=== PATIENT | female | born 1930 | race Caucasian/White ===

== ENCOUNTER 2016-07-03 13:03 | Emergency (ER) | payer MEDICARE, OTHER ==
[2016-07-03] MEDS ORDERED: Sodium Chloride 0.9% 10 ML Syringe FLUSH PRN (13:10)
[2016-07-03] MEDS ORDERED: Sodium Chloride 0.9% 1,000 ML IV ONE ×3 (13:13→14:40)
--- NOTE | 2016-07-03 13:32 | EDM.PDOC ---
ED HPI SEIZURE COMPLAINT - General Chief Complaint: Syncope Stated Complaint: [facility] Time Seen by Provider: 07/03/16 13:07 Source of Information: Reports: Patient History Limitations: Reports: No limitations - History of Present Illness INITIAL COMMENTS - FREE TEXT/NARRATIVE: Patient presents via EMS for evaluation and treatment of dizziness and syncope. Patient was at [facility] she became very dizzy and lightheaded. She was able to lay down on her own. She did not fall and hit her head denies any head trauma. She states anytime that she attempted to stand up she felt extremely dizzy, lightheaded and was unable to walk. Patient is denying any pain. She reports that the dizziness and lightheadedness is better when she is laying down. She denies any chest pain, abdominal pain, diarrhea, nausea, vomiting or any bloody stools. Patient reports that she was recently diagnosed with atrial fibrillation. She was started on new medications recently. Patient also reports that this morning she forgot to take her a.m. medications. She states that she took her a.m. and her noon medications all at the same time today. - Related Data Allergies/ADRs: Allergies Allergy/AdvReac Type Severity Reaction Status Date / Time azithromycin [From Zithromax] Allergy Hives Verified 07/03/16 13:11 cefaclor [From Ceclor] Allergy Rash Verified 07/03/16 13:11 valacyclovir HCl Allergy Rash Verified 07/03/16 13:11 [From Valtrex] pregabalin [From Lyrica] AdvReac Hypertensio Verified 07/03/16 13:11 n Home Meds: Home Meds Hydrochlorothiazide 25 mg PO QAM 09/17/13 [History] Irbesartan [Avapro] 150 mg PO QAM 09/17/13 [History] Omeprazole 20 mg PO QPM 09/17/13 [History] amLODIPine Besylate [Amlodipine Besylate] 5 mg PO QAM 09/17/13 [History] Acetaminophen [Tylenol Extra Strength] 500 mg PO DAILY PRN 09/18/13 [History] B2/Vit A,C & E/Lut/Zeaxanth/Mn [Icaps] 2 tab PO 12 09/18/13 [History] Fish Oil/[place]-3 Fatty Acids [Fish Oil 1,000 MG] 1,000 mg PO DAILY 09/18/13 [ History] Flaxseed Oil [Flaxseed] 1 cap PO 12 09/18/13 [History] Multivitamin [Multi-Vitamin Daily] 1 tab PO DAILY 09/18/13 [History] Calcium Carbonate [Calcium] 1 tab PO DAILY 05/26/16 [History] DULoxetine [Cymbalta] 90 mg PO DAILY 05/26/16 [History] Diazepam [Valium] 0.25 mg PO BEDTIME 05/26/16 [History] Donepezil [Aricept] 10 mg PO BEDTIME 05/26/16 [History] Gabapentin [Neurontin] 300 mg PO BEDTIME 05/26/16 [History] Melatonin 1 mg PO BEDTIME PRN 05/26/16 [History] Methylcellulose [Citrucel] 1 tab PO TID 05/26/16 [History] Potassium Chloride [Klor-Con 10] 10 meq PO BID 05/26/16 [History] Aspirin 81 mg PO DAILY #100 tab.chew 05/29/16 [Rx] Metoprolol Succinate [Toprol XL] 50 mg PO BID #60 tab.er 05/29/16 [Rx] oxyCODONE 5 mg PO Q6H PRN #56 tablet 05/29/16 [Rx] Amiodarone [Cordarone] 100 mg PO DAILY 07/03/16 [History] Fluticasone Propionate [Flovent] 1 inh INH BID 07/03/16 [History] Past Medical History HEENT History: Reports: Impaired vision, Other (see below) Other HEENT History: Wears glasses Cardiovascular History: Reports: Hypertension Gastrointestinal History: Reports: GERD Other Gastrointestinal History: Incontinent of bowels Genitourinary History: Reports: Urinary incontinence, Other (see below) Other Genitourinary History: Wears incontinent pads [facility]: Reports: Musculoskeletal History: Reports: Back pain, chronic Neurological History: Reports: Migraines, Neuropathy, diabetic, Other (see below ) Other Neuro History: Migraines quit after menopause, short term memory loss diagnosisi Psychiatric History: Reports: Anxiety, Depression, Other (see below) Other Psychiatric History: Short term memory loss. - Infectious Disease History Infectious Disease History: Reports: Measles, Shingles - Past Surgical History Cardiovascular Surgical History: Reports: None GI Surgical History: Reports: None Musculoskeletal Surgical History: Reports: Other (see below) Other Musculoskeletal Surgeries/Procedures:: back fusions Social & Family History - Family History Family Medical History: Noncontributory - Tobacco Use Smoking Status *Q: Never Smoker Second Hand Smoke Exposure: No - Caffeine Use Caffeine Use: Reports: None - Alcohol Use Days Per Week of Alcohol Use: 0 - Recreational Drug Use Recreational Drug Use: No Drug Use in Last 12 Months: No ED ROS GENERAL - Review of Systems Review Of Systems: See Below Constitutional: Denies: fever, chills Cardiovascular: Reports: Lightheadedness. Denies: Chest pain GI/Abdominal: Denies: Abdominal pain, Hematochezia, Melena, Nausea, Vomiting : Reports: no symptoms Neurological: Reports: Dizziness, Syncope - Physical Exam Exam: See Below Exam Limited By: No limitations General Appearance: alert, WD/WN, no apparent distress Eye Exam: bilateral eye: PERRL Ears: normal external exam Nose: normal inspection Throat/Mouth: Normal inspection, Normal voice, No airway compromise Head Exam: atraumatic, normocephalic Neck: normal inspection, non-tender, full range of motion Respiratory/Chest: no respiratory distress, lungs clear, normal breath sounds Cardiovascular: normal peripheral pulses, no murmur, irregularly irregular EKG INTERPRETATION EKG Date: 07/03/16 Time: 13:40 Rhythm: NSR Rate (beats/min): 65 [place]: normal P-wave: present QRS: normal ST-T: normal QT: prolonged EKG Interpretation Comments: NSR at 65 bpm. First degree AV block. Prolonged QT interval. Reviewed by myself and Dr. Diehl. Course - Vital Signs Last Recorded V/S: Last Vital Signs Temp 36.9 C 07/03/16 13:08 Pulse 61 07/03/16 17:23 Resp 16 07/03/16 17:23 BP 131/64 07/03/16 17:23 Pulse Ox 96 07/03/16 17:23 Orthostatic Blood Pressure [ 118/63 Standing] Orthostatic Blood Pressure [ 124/74 Sitting] Orthostatic Blood Pressure [ 121/66 Supine] - Orders/Labs/Meds Labs: Laboratory Tests 07/03/16 07/03/16 07/03/16 Range/Units 13:05 13:05 13:05 WBC 4.98 (3.98-10.04) K/mm3 RBC 3.57 L (3.98-5.22) M/mm3 Hgb 11.3 (11.2-15.7) gm/L Hct 34.1 (34.1-44.9) % MCV 95.5 H (79.4-94.8) fl MCH 31.7 (25.6-32.2) pg MCHC 33.1 (32.2-35.5) g/dl RDW Std Deviation 44.0 (36.4-46.3) fL Plt Count 212 (182-369) K/mm3 MPV 8.2 L (9.4-12.3) fl Neut % (Auto) 70.5 (34.0-71.1) % Lymph % (Auto) 18.7 L (19.3-51.7) % Frio % (Auto) 8.8 (4.7-12.5) % Eos % (Auto) 1.6 (0.7-5.8) Baso % (Auto) 0.4 (0.1-1.2) % Neut # 3.51 (1.56-6.13) K/mm3 Lymph # 0.93 L (1.18-3.74) K/mm3 Frio # 0.44 H (0.24-0.36) K/mm3 Eos # 0.08 (0.04-0.36) K/mm3 Baso # 0.02 (0.01-0.08) K/mm3 PT 11.3 (8.0-13.0) SECONDS INR 1.03 Sodium 144 (136-145) mEq/L Potassium 3.9 (3.5-5.1) mEq/L Chloride 106 (98-107) mEq/L Carbon Dioxide 33 H (21-32) mEq/L Anion Gap 8.9 (5-15) BUN 17 (7-18) mg/dL Creatinine 1.0 (0.55-1.02) mg/dL Est Cr Clr Drug Dosing TNP Estimated GFR (MDRD) 53 (>60) mL/min BUN/Creatinine Ratio 17.0 (14-18) Glucose 129 H (83-115) mg/dL POC Glucose (83-110) mg/dL Calcium 8.3 L (8.5-10.1) mg/dL Total Bilirubin 0.7 (0.2-1.0) mg/dL AST 15 (15-37) U/L ALT 20 (14-59) U/L Alkaline Phosphatase 76 (46-116) U/L Troponin I < 0.017 (0.00-0.056) ng/mL B-Natriuretic Peptide (0-100) pg/mL Total Protein 5.7 L (6.4-8.2) g/dl Albumin 3.0 L (3.4-5.0) g/dl Globulin 2.7 gm/dL Albumin/Globulin Ratio 1.1 (1-2) Urine Color (Yellow) Urine Appearance (Clear) Urine pH (5.0-8.0) Ur Specific [place] (1.005-1.030) Urine Protein (Negative) Urine Glucose (UA) (Negative) Urine Ketones (Negative) Urine Occult Blood (Negative) Urine Nitrite (Negative) Urine Bilirubin (Negative) Urine Urobilinogen (0.2-1.0) Ur Leukocyte Esterase (Negative) Urine RBC (0-5) /hpf Urine WBC (0-5) /hpf Ur Epithelial Cells (0-5) /hpf Urine Bacteria (FEW) /hpf Urine Mucus (FEW) /hpf 07/03/16 07/03/16 07/03/16 Range/Units 13:05 13:07 15:40 WBC (3.98-10.04) K/mm3 RBC (3.98-5.22) M/mm3 Hgb (11.2-15.7) gm/L Hct (34.1-44.9) % MCV (79.4-94.8) fl MCH (25.6-32.2) pg MCHC (32.2-35.5) g/dl RDW Std Deviation (36.4-46.3) fL Plt Count (182-369) K/mm3 MPV (9.4-12.3) fl Neut % (Auto) (34.0-71.1) % Lymph % (Auto) (19.3-51.7) % Frio % (Auto) (4.7-12.5) % Eos % (Auto) (0.7-5.8) Baso % (Auto) (0.1-1.2) % Neut # (1.56-6.13) K/mm3 Lymph # (1.18-3.74) K/mm3 Frio # (0.24-0.36) K/mm3 Eos # (0.04-0.36) K/mm3 Baso # (0.01-0.08) K/mm3 PT (8.0-13.0) SECONDS INR Sodium (136-145) mEq/L Potassium (3.5-5.1) mEq/L Chloride (98-107) mEq/L Carbon Dioxide (21-32) mEq/L Anion Gap (5-15) BUN (7-18) mg/dL Creatinine (0.55-1.02) mg/dL Est Cr Clr Drug Dosing Estimated GFR (MDRD) (>60) mL/min BUN/Creatinine Ratio (14-18) Glucose (83-115) mg/dL POC Glucose 141 H (83-110) mg/dL Calcium (8.5-10.1) mg/dL Total Bilirubin (0.2-1.0) mg/dL AST (15-37) U/L ALT (14-59) U/L Alkaline Phosphatase (46-116) U/L Troponin I (0.00-0.056) ng/mL B-Natriuretic Peptide 109 H (0-100) pg/mL Total Protein (6.4-8.2) g/dl Albumin (3.4-5.0) g/dl Globulin gm/dL Albumin/Globulin Ratio (1-2) Urine Color Light yellow (Yellow) Urine Appearance Slt cloudy H (Clear) Urine pH 7.0 (5.0-8.0) Ur Specific [place] 1.020 (1.005-1.030) Urine Protein Negative (Negative) Urine Glucose (UA) Negative (Negative) Urine Ketones Negative (Negative) Urine Occult Blood Negative (Negative) Urine Nitrite Positive H (Negative) Urine Bilirubin Negative (Negative) Urine Urobilinogen 0.2 (0.2-1.0) Ur Leukocyte Esterase Trace H (Negative) Urine RBC 0-5 (0-5) /hpf Urine WBC 20-30 H (0-5) /hpf Ur Epithelial Cells 0-5 (0-5) /hpf Urine Bacteria Many H (FEW) /hpf Urine Mucus Few (FEW) /hpf Meds: Medications Discontinued Medications Generic Name Dose Route Start Last Admin Trade Name Freq PRN Reason Stop Dose Admin Sodium Chloride 1,000 mls @ 999 mls/hr 07/03/16 13:13 07/03/16 13:19 Normal Saline IV 07/03/16 14:13 999 mls/hr ONETIME ONE Administration Sodium Chloride 1,000 mls @ 999 mls/hr 07/03/16 13:52 07/03/16 14:44 Normal Saline IV 07/03/16 14:52 999 mls/hr ONETIME ONE Administration Sodium Chloride 1,000 mls @ 999 mls/hr 07/03/16 14:40 07/03/16 14:45 Normal Saline IV 07/03/16 15:40 Not Given ONETIME ONE Sodium Chloride 10 ml 07/03/16 13:10 07/03/16 13:20 Saline Flush FLUSH 10 ml ASDIRECTED PRN Administration Keep Vein Open - Radiology Interpretation Free Text/Narrative:: chest xray reviewed by myself and Dr. Diehl shows no acute changes. - Re-Assessments/Exams Free Text/Narrative Re-Assessment/Exam: 07/03/16 13:42 has arrived. Found that in addition to her normal am and noon medications she also took his medications. This includes coreg, imdur, lipitor and welco. 07/06/16 16:30 Labs have returned. WBC is 4.98, hgb is 11.3 and plts are 212 Sodium is 144, potassium is 3.9 and chloride ia 106. Anion gap is 8.9. Glucose is 129. Creatinine is 1.0 Pt is 11.3, INR is 1.03 BNP is slightly elevated at 109 trop is negative at <0.017 UA has + nitrites and trace leuks. Urine sent for culture. Patient is feeling improved after receiving the 2 liter NS boluses. She has been able to get up and stand without much difficulty. Discussed with Dr. Diehl. Symptoms likely caused by taking husbands medications. Will have her hold the metoprolol tonight and resume normal medications tomorrow. 07/05/16 14:52 Culture returned. Klebsiella pneumonia present. Susceptible to bactrim. Resistant to macrobid and ampicillin. Patient has allergies to cefaclor. Rx for bactrim DS 1 tab PO bid x 7 days for UTI. Departure - Departure Time of Disposition: 16:35 Disposition: Home, Self-Care 01 Condition: fair Clinical Impression: Hypotension due to medication Instructions: Syncope, [id number] Referrals: Alex Maguire MD [Primary Care Provider] - Forms: ED Department Discharge Additional Instructions: Hold metoprolol tonight. Resume normal medications tomorrow. Rest today. Take your time getting up. Drink plenty of fluids. Please return to the ER should your symptoms change or worsen. Follow-up with your PCP as needed.
[2016-07-03 17:24] VITALS: BP 131/64
--- NOTE | 2016-07-05 07:59 | CR ---
Chest: Portable view of the chest was obtained. Comparison: Previous chest x-ray of 05/26/16. Heart is enlarged. Tortuous thoracic aorta is seen. Minimal scar is noted within the right lung base. Lungs otherwise are clear. Scoliosis present within the spine. Previous lower lumbar spine surgery is noted. Impression: 1. Findings as described above. Nothing acute is identified on portable chest x-ray. Diagnostic code #2
== END 2016-07-03 17:15 | disposition home or self-care (01) ==
LOC: SUPCPDRO 13:03 → JD.ED 13:03
DX: I95.2 Hypotension due to drugs (principal); T50.905A Adverse effect of unspecified drugs, medicaments and biological substances, initial encounter; I10 Essential (primary) hypertension; K21.9 Gastro-esophageal reflux disease without esophagitis; E11.40 Type 2 diabetes mellitus with diabetic neuropathy, unspecified; F41.9 Anxiety disorder, unspecified; F32.9 Major depressive disorder, single episode, unspecified; Z79.899 Other long term (current) drug therapy; Z79.82 Long term (current) use of aspirin; Z88.1 Allergy status to other antibiotic agents; Z88.8 Allergy status to other drugs, medicaments and biological substances
CPT/HCPCS: 36415; 71010; 80053; 81001; 82962; 83880; 84484; 85025; 85610; 87086; 93005; 96360; 96361; 99285; J7040; J7050; 87088; 87186; 99283

== ENCOUNTER 2016-07-25 03:57 | Emergency (ER) | payer MEDICARE, OTHER ==
[2016-07-25] MEDS ORDERED: predniSONE 20 MG Tab PO STA (04:48)
--- NOTE | 2016-07-25 04:54 | EDM.PDOC ---
ED HPI Allergic Reaction - General Chief Complaint: Allergic Reaction Stated Complaint: [facility] Time Seen by Provider: 07/25/16 04:27 Source of Information: Reports: Patient, Family (), RN notes reviewed History Limitations: Reports: No limitations - History of Present Illness INITIAL COMMENTS - FREE TEXT/NARRATIVE: The patient states that she developed lower lip and chin swelling, along with generalized pruritic urticaria about 24 hours ago. She does not have swelling of her tongue or back of her throat, and she denies dyspnea and wheezing. No prior similar symptoms. The patient was started on triamterene/HCTZ Tuesday evening, 07/23/2016, with her second dose yesterday morning, 07/24/2016. The patient also takes oxycodone, but believes that the last dose that she took was after her symptoms began. The patient's gave the patient a Zyrtec at home prior to coming to the ED. - Related Data Allergies/ADRs: Allergies Allergy/AdvReac Type Severity Reaction Status Date / Time azithromycin [From Zithromax] Allergy Hives Verified 07/25/16 04:14 cefaclor [From Ceclor] Allergy Rash Verified 07/25/16 04:14 valacyclovir HCl Allergy Rash Verified 07/25/16 04:14 [From Valtrex] pregabalin [From Lyrica] AdvReac Hypertensio Verified 07/25/16 04:14 n Home Meds: Home Meds Irbesartan [Avapro] 150 mg PO QAM 09/17/13 [History] Omeprazole 20 mg PO QPM 09/17/13 [History] amLODIPine Besylate [Amlodipine Besylate] 5 mg PO QAM 09/17/13 [History] Acetaminophen [Tylenol Extra Strength] 500 mg PO DAILY PRN 09/18/13 [History] B2/Vit A,C & E/Lut/Zeaxanth/Mn [Icaps] 2 tab PO 12 09/18/13 [History] Fish Oil/[place]-3 Fatty Acids [Fish Oil 1,000 MG] 1,000 mg PO DAILY 09/18/13 [ History] Flaxseed Oil [Flaxseed] 1 cap PO 12 09/18/13 [History] Multivitamin [Multi-Vitamin Daily] 1 tab PO DAILY 09/18/13 [History] Calcium Carbonate [Calcium] 1 tab PO DAILY 05/26/16 [History] DULoxetine [Cymbalta] 90 mg PO DAILY 05/26/16 [History] Diazepam [Valium] 0.25 mg PO BEDTIME 05/26/16 [History] Donepezil [Aricept] 10 mg PO BEDTIME 05/26/16 [History] Gabapentin [Neurontin] 300 mg PO BEDTIME 05/26/16 [History] Melatonin 1 mg PO BEDTIME PRN 05/26/16 [History] Methylcellulose [Citrucel] 1 tab PO TID 05/26/16 [History] Aspirin 81 mg PO DAILY #100 tab.chew 05/29/16 [Rx] Metoprolol Succinate [Toprol XL] 50 mg PO BID #60 tab.er 05/29/16 [Rx] oxyCODONE 5 mg PO Q6H PRN #56 tablet 05/29/16 [Rx] Amiodarone [Cordarone] 100 mg PO DAILY 07/03/16 [History] Fluticasone Propionate [Flovent] 1 inh INH BID 07/03/16 [History] Prednisone [IJD: predniSONE] 1 tab PO WITHBREAKFAST #3 tab 07/25/16 [Rx] Triamterene/Hydrochlorothiazid [Triamterene-HCTZ 37.5-25 MG] 1 each PO DAILY 01/02 [History] Past Medical History HEENT History: Reports: Impaired vision Other HEENT History: Wears glasses Cardiovascular History: Reports: Afib (paroxysmal), Hypertension Gastrointestinal History: Reports: GERD Other Gastrointestinal History: Incontinent of bowels Genitourinary History: Reports: Urinary incontinence [employer] History: Reports: Musculoskeletal History: Reports: Back pain, chronic, Osteoarthritis (spine) Neurological History: Reports: Other (see below) (Dementia) Psychiatric History: Reports: Anxiety, Depression - Infectious Disease History Infectious Disease History: Reports: Measles, Shingles - Past Surgical History HEENT Surgical History: Reports: Cataract surgery, Tonsillectomy Female Surgical History: Reports: Hysterectomy Neurological Surgical History: Reports: Lumbar spine (5 - 6 fusions and "clean up" surgeries) Social & Family History - Family History Family Medical History: Noncontributory - Tobacco Use Smoking Status *Q: Never Smoker Second Hand Smoke Exposure: No - Caffeine Use Caffeine Use: Reports: None - Alcohol Use Alcohol Use History: No Days Per Week of Alcohol Use: 0 - Recreational Drug Use Recreational Drug Use: No - Living Situation & Occupation Living situation: Reports: , with spouse Occupation: retired ED ROS ALLERGIC REACTION - Review of Systems Review Of Systems: See Below Constitutional: Reports: no symptoms HEENT: Reports: No symptoms Respiratory: Reports: No Symptoms Cardiovascular: Reports: No symptoms Endocrine: Reports: no symptoms GI/Abdominal: Reports: No symptoms : Reports: no symptoms Musculoskeletal: Reports: no symptoms Skin: Reports: no symptoms Neurological: Reports: No Symptoms Psychiatric: Reports: No symptoms Hematologic/Lymphatic: Reports: no symptoms Immunologic: Reports: no symptoms ED EXAM GENERAL NO PERIP PULSE - Physical Exam Exam: See Below Exam Limited By: No limitations General Appearance: alert, WD/WN, no apparent distress Eye Exam: bilateral eye: EOMI, normal inspection Ears: normal external exam, hearing grossly normal Nose: normal inspection, no blood Throat/Mouth: Normal inspection, Normal lips, Normal teeth, Normal gums, Normal oropharynx (No tongue or uvular swelling), Normal voice, No airway compromise Head: atraumatic, normocephalic Neck: normal inspection, full range of motion. No: lymphadenopathy (L), lymphadenopathy (R) Respiratory/Chest: no respiratory distress, lungs clear, normal breath sounds, no accessory muscle use. No: crackles, rhonchi, wheezing Cardiovascular: normal peripheral pulses, regular rate, rhythm, no edema, no gallop, no JVD, no murmur, no rub GI/Abdominal: normal bowel sounds, soft, non tender, no organomegaly, no distention, no abnormal bruit, no mass (Female) Exam: Deferred Rectal (Female) Exam: Deferred Back Exam: normal inspection Extremities: normal inspection, normal range of motion, no pedal edema, normal capillary refill Neurological: alert, oriented, no motor/sensory deficits Psychiatric: normal affect Skin Exam: Warm, Dry, Intact, Normal color, Rash (Generalized urticaria) Lymphatic: no adenopathy Course - Vital Signs Last Recorded V/S: Last Vital Signs Temp 36.8 C 07/25/16 04:08 Pulse 60 07/25/16 04:08 Resp 13 07/25/16 04:08 BP 143/65 H 07/25/16 04:08 Pulse Ox 95 07/25/16 04:08 - Orders/Labs/Meds Meds: Medications Discontinued Medications Generic Name Dose Route Start Last Admin Trade Name Idania PRKarla Reason Stop Dose Admin Prednisone 40 mg 07/25/16 04:48 07/25/16 04:53 Prednisone PO 07/25/16 04:49 40 mg ONETIME STA Administration - Re-Assessments/Exams Free Text/Narrative Re-Assessment/Exam: 07/25/16 04:49 The patient appears to be having an allergic reaction, with generalized urticaria and pruritus. Etiology unknown. I have started the patient on prednisone 40 mg now, and will e-prescribe 20 mg daily, starting tomorrow, for 3 days. I will refer her to an Distribution Collection Operator. Departure - Departure Time of Disposition: 04:50 Disposition: Home, Self-Care 01 Condition: fair Clinical Impression: Allergic reaction Prescriptions: Prednisone [IJD: predniSONE] 1 tab PO WITHBREAKFAST #3 tab Referrals: Alex Maguire MD [Primary Care Provider] - Mynor Gao MD [Ordering Only Provider] - Forms: ED Department Discharge Additional Instructions: You were seen in the emergency room for itchy hives. The cause of your allergic reaction is unknown. It could be anything you ingested, including food or medicine. You have been started on the steroid prednisone. Take one tablet with breakfast starting tomorrow, 07/26/2016. Finish the entire prescription unless told otherwise by your doctor. If you develop difficulty breathing or swallowing, you need to return to the ER right away. Otherwise, followup with the Distribution Collection Operator Dr. Gao at the next available appointment.
[2016-07-25 05:17] VITALS: BP 143/60
== END 2016-07-25 05:13 | disposition home or self-care (01) ==
LOC: JD.ED 03:57
DX: T78.40XA Allergy, unspecified, initial encounter (principal); I10 Essential (primary) hypertension; K21.9 Gastro-esophageal reflux disease without esophagitis; F41.8 Other specified anxiety disorders; M19.90 Unspecified osteoarthritis, unspecified site; Z79.899 Other long term (current) drug therapy; Z79.82 Long term (current) use of aspirin; Z88.1 Allergy status to other antibiotic agents; Z88.8 Allergy status to other drugs, medicaments and biological substances
CPT/HCPCS: 99283; A9270

== ENCOUNTER 2016-07-26 06:08 | Emergency (ER) | payer MEDICARE, OTHER ==
[2016-07-26] MEDS ORDERED: Famotidine 20 MG/2 ML SDV IVPUSH ONE (06:22)
[2016-07-26] MEDS ORDERED: methylPREDNISolone Sodium Succinate 125 MG/2 ML SDV IVPUSH ONE (06:22)
[2016-07-26] MEDS ORDERED: diphenhydrAMINE 50 MG/ML SDV IVPUSH ONE ×2 (06:22→08:09)
--- NOTE | 2016-07-26 06:26 | EDM.PDOC ---
<Gordo Diehl Noe - Last Filed: 07/26/16 06:21> ED HPI Allergic Reaction - General Chief Complaint: Allergic Reaction Stated Complaint: HIVES Time Seen by Provider: 07/26/16 06:21 Source of Information: Reports: Patient, Family (spouse) History Limitations: Reports: No limitations - History of Present Illness INITIAL COMMENTS - FREE TEXT/NARRATIVE: 86-year-old female presents to the ED once again with generalized urticaria. It appears that these symptoms started after taking the initial dose of triamterene hydrochlorothiazide that was started on July 23. Her stools was taken Tuesday evening and struck her second dose yesterday morning for May 26. Started to develop a rash on the evening of July 24. She was seen to the ED and given a dose of prednisone 40 mg orally. She had taken the Zyrtec at home. The rash is actually worsening despite him not getting better. She noticing on her wrists. It involves her upper or lower eyelids. She has no hoarseness does not feel any shortness of breath or wheezing. She has known allergies to medications Ceclor Zithromax Ultrex and Lyrica. She has no angioedema. It appears she most likely has been exposed to hydrochlorothiazide her thiazide diuretic in the past and is exhibiting an acute allergic reaction to hydrochlorothiazide at this time. The edition of course is been stopped with the last dose taken on July 24 morning. Symptom Onset Date: 07/24/16 Timing/Duration: Reports: Hour(s):, Gradual onset, Waxing/waning Location, Skin: Reports: generalized Characteristics: Reports: patchy, urticarial, other Associated features: Reports: warmth, swelling, inflammation Quality: Reports: Itching Severity: moderate Known identified source: possible/maybe (Likely new medication triamterene hydrochlorothiazide that was started for the first day on July 23.) Place of Occurrence: home Sick Contact: no Associated Symptoms: Reports: rash. 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 (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 below) (Prednisone 40 mg orally was given yesterday and and 20 mg was to be taken today.) - Related Data Allergies/ADRs: Allergies Allergy/AdvReac Type Severity Reaction Status Date / Time azithromycin [From Zithromax] Allergy Hives Verified 07/26/16 06:17 cefaclor [From Ceclor] Allergy Rash Verified 07/26/16 06:17 valacyclovir HCl Allergy Rash Verified 07/26/16 06:17 [From Valtrex] pregabalin [From Lyrica] AdvReac Hypertensio Verified 07/26/16 06:17 n Home Meds: Home Meds Irbesartan [Avapro] 150 mg PO QAM 09/17/13 [History] Omeprazole 20 mg PO Q48H 09/17/13 [History] amLODIPine Besylate [Amlodipine Besylate] 5 mg PO QAM 09/17/13 [History] Acetaminophen [Tylenol Extra Strength] 500 mg PO DAILY PRN 09/18/13 [History] Fish Oil/[place]-3 Fatty Acids [Fish Oil 1,000 MG] 1,000 mg PO DAILY 09/18/13 [ History] Flaxseed Oil [Flaxseed] 1 cap PO 12 09/18/13 [History] Multivitamin [Multi-Vitamin Daily] 1 tab PO DAILY 09/18/13 [History] Calcium Carbonate [Calcium] 1 tab PO DAILY 05/26/16 [History] DULoxetine [Cymbalta] 90 mg PO DAILY 05/26/16 [History] Diazepam [Valium] 0.25 mg PO BEDTIME 05/26/16 [History] Donepezil [Aricept] 10 mg PO BEDTIME 05/26/16 [History] Gabapentin [Neurontin] 300 mg PO BEDTIME 05/26/16 [History] Melatonin 1 mg PO BEDTIME PRN 05/26/16 [History] Methylcellulose [Citrucel] 1 tab PO TID 05/26/16 [History] Aspirin 81 mg PO DAILY #100 tab.chew 05/29/16 [Rx] Metoprolol Succinate [Toprol XL] 50 mg PO BID #60 tab.er 05/29/16 [Rx] oxyCODONE 5 mg PO Q6H PRN #56 tablet 05/29/16 [Rx] Amiodarone [Cordarone] 100 mg PO DAILY 07/03/16 [History] Fluticasone Propionate [Flovent] 1 inh INH BID 07/03/16 [History] Prednisone [IJD: predniSONE] 1 tab PO WITHBREAKFAST #3 tab 07/25/16 [Rx] Triamterene/Hydrochlorothiazid [Triamterene-HCTZ 37.5-25 MG] 1 each PO DAILY 01/02 [History] Famotidine [Pepcid] 20 mg PO BID #10 tablet 07/26/16 [Rx] Lutein/Minerals/Vit A,C & E [Ocuvite] 2 tab PO 1200 07/26/16 [History] Prednisone [IJD: predniSONE] 20 mg PO BID #10 tab 07/26/16 [Rx] Past Medical History HEENT History: Reports: Impaired vision Other HEENT History: Wears glasses Cardiovascular History: Reports: Afib (paroxysmal), Hypertension Gastrointestinal History: Reports: GERD Other Gastrointestinal History: Incontinent of bowels Genitourinary History: Reports: Urinary incontinence Other Genitourinary History: Wears incontinent pads 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 - Infectious Disease History Infectious Disease History: Reports: Measles, Shingles - Past Surgical History HEENT Surgical History: Reports: Cataract surgery, Tonsillectomy Female Surgical History: Reports: Hysterectomy Neurological Surgical History: Reports: Lumbar spine (5 - 6 fusions and "clean up" surgeries) Social & Family History - Family History Family Medical History: Noncontributory - Tobacco Use Smoking Status *Q: Never Smoker Second Hand Smoke Exposure: No - Caffeine Use Caffeine Use: Reports: None - Alcohol Use Days Per Week of Alcohol Use: 0 - Recreational Drug Use Recreational Drug Use: No Drug Use in Last 12 Months: No - Living Situation & Occupation Living situation: Reports: , with spouse Occupation: retired ED ROS ALLERGIC REACTION - Review of Systems Review Of Systems: See Below Constitutional: Denies: fever, chills, malaise, weakness, fatigue, decreased appetite, weight loss HEENT: Reports: Other (Its were a little swollen yesterday.) Respiratory: Denies: Shortness of Breath, Wheezing, Pleuritic Chest Pain, Cough , Sputum Cardiovascular: Reports: Blood pressure problem, Dyspnea on exertion, Edema ( Sometimes in the lower chimney's.). Denies: Chest pain, Claudication, Lightheadedness, Orthopnea, Palpitations Endocrine: Reports: fatigue GI/Abdominal: Reports: Constipation : Reports: frequency Musculoskeletal: Reports: back pain Skin: Reports: pruritis, urticaria (See history present illness) Neurological: Reports: Confusion (Has mild dementia.) Psychiatric: Reports: Confusion Hematologic/Lymphatic: Reports: no symptoms ED EXAM GENERAL NO PERIP PULSE - Physical Exam Exam: See Below Exam Limited By: No limitations General Appearance: alert, WD/WN, mild distress, other (Obvious erythema of the upper and lower eyelids in a circumferential fashion around her eyes.) Eye Exam: bilateral eye: periorbital changes (Erythema and swelling of upper and lower eyelids bilaterally.) Ears: normal TMs Nose: normal inspection Throat/Mouth: Normal inspection, Normal lips, Normal oropharynx, Other Head: atraumatic, normocephalic (Uvula and floor of the mouth are normal) Neck: normal inspection, supple, non-tender, full range of motion. No: lymphadenopathy (L), lymphadenopathy (R) Respiratory/Chest: lungs clear, normal breath sounds, no accessory muscle use, chest non-tender Cardiovascular: regular rate, rhythm, no edema, no gallop, no murmur, no rub. No: normal peripheral pulses GI/Abdominal: normal bowel sounds, soft, non tender, no organomegaly Extremities: normal range of motion, non-tender, no pedal edema, other (Mild kyphosis thoracic spine.) Neurological: alert, CN II-XII intact, no motor/sensory deficits. No: normal cognition, normal gait, normal reflexes Psychiatric: normal affect, normal mood Skin Exam: Warm, Dry, Intact, Other (Generalized urticaria with circumferential fascicular lesions thighs and groin. She has urticaria on her anterior chest as well. The worst urticaria and swelling is along the volar aspects of both her wrists and her volar hands. particular in her upper back and neck. There are patches of giant hives left lateral abdominal wall but talks) Course - Vital Signs Last Recorded V/S: Last Vital Signs Temp 99.3 F 07/26/16 06:14 Pulse 75 07/26/16 06:14 Resp 16 07/26/16 06:14 BP 143/70 H 07/26/16 06:14 Pulse Ox 95 07/26/16 06:14 - Orders/Labs/Meds Orders: Active Orders 24 hr Category Date Time Status Sodium Chloride 0.9% [Normal Saline] 1,000 ml Med 07/26/16 06:30 Active IV ASDIRECTED Medication Orders Sodium Chloride (Normal Saline) 1,000 mls @ 150 mls/hr IV ASDIRECTED CHAY Last Admin: 07/26/16 06:33 Dose: 150 mls/hr Meds: Medications Generic Name Dose Route Start Last Admin Trade Name Freq PRN Reason Stop Dose Admin Sodium Chloride 1,000 mls @ 150 mls/hr 07/26/16 06:30 07/26/16 06:33 Normal Saline IV 150 mls/hr ASDIRECTED CHAY Administration Discontinued Medications Generic Name Dose Route Start Last Admin Trade Name Freq PRN Reason Stop Dose Admin Diphenhydramine HCl 25 mg 07/26/16 06:22 07/26/16 06:28 Benadryl IVPUSH 07/26/16 06:23 25 mg ONETIME ONE Administration Diphenhydramine HCl 25 mg 07/26/16 08:09 07/26/16 08:24 Benadryl IVPUSH 07/26/16 08:10 25 mg ONETIME ONE Administration Famotidine 20 mg 07/26/16 06:22 07/26/16 06:29 Pepcid IVPUSH 07/26/16 06:23 20 mg ONETIME ONE Administration Methylprednisolone Sodium Succinate 125 mg 07/26/16 06:22 07/26/16 06:27 Solu-Medrol IVPUSH 07/26/16 06:23 125 mg ONETIME ONE Administration - Radiology Interpretation Free Text/Narrative:: 86-year-old female presents the ED with generalized urticaria. Likely culprit his new medication triamterene hydrochlorothiazide likely the thiazide component. Medication was stopped yesterday after only 2 doses of medication. She is still symptomatic and I explained to the double that is with her that drug eruption will often be present for over a week before it comes under control. Dr. Rivera has placed her on 40 mg of prednisone orally once on Tuesday evening. She's been taking small doses of Benadryl when necessary. She was to take 20 mg of prednisone once daily after this which she did once yesterday. Plan IV Solu-Medrol 125 mg Pepcid 20 mg IV and Benadryl 25 mg IV at this time she took 25 mg orally before coming to the ED. This is likely to cause some degree of increased confusion and agitation due to her dementia. Have been some concerns about larger doses of steroids causing fluid retention which may aggravate her underlying heart disease. Departure - Departure Disposition: Home, Self-Care 01 Condition: fair Clinical Impression: Urticaria due to drug allergy Prescriptions: Famotidine [Pepcid] 20 mg PO BID #10 tablet Prednisone [IJD: predniSONE] 20 mg PO BID #10 tab Instructions: Drug Allergy, [id number] Referrals: Alex Maguire MD [Primary Care Provider] - Forms: ED Department Discharge Additional Instructions: Suggest use of prednisone 20 mg twice daily with breakfast and supper for 5 days. No medication will be a fluid medication called furosemide 20 mg once daily in the mornings to replace triamterene hydrochlorothiazide and prevent fluid retention from the prednisone. May continue to use Benadryl 25-50 mg every 6 hours as needed to relieve itch. May also use Pepcid 20 mg once daily until the rash is gone. Postop and drug eruptions last 5-7 days before they go away. Strongly suggest no further use of thiazide diuretics ever again in the future. Note Benadryl causes fatigue sleepiness and may aggravate confusional states. Tried to use it as least as possible. <Que Dawson - Last Filed: 07/26/16 09:15> Course - Re-Assessments/Exams Free Text/Narrative Re-Assessment/Exam: 07/26/16 09:[address] Diehl. The patient had more hives and she was itching more. I gave her more benadryl 25mg IV. She had no shortness of breath or trouble swallowing. She feels better. Dr Diehl wrote prescriptions and discharge. He did not write a prescription for lasix that he mentioned in his note. I added that. I will have her daughter call Dr Mallory this week to get his guidance on what to take now. Departure - Departure Time of Disposition: 09:15
[2016-07-26] MEDS ORDERED: Sodium Chloride 0.9% 1,000 ML IV SCH (06:30)
[2016-07-26 09:25] VITALS: BP 120/50
== END 2016-07-26 09:26 | disposition home or self-care (01) ==
LOC: JD.ED 06:08
DX: L50.9 Urticaria, unspecified (principal); Z79.899 Other long term (current) drug therapy; Z88.1 Allergy status to other antibiotic agents; Z88.8 Allergy status to other drugs, medicaments and biological substances; I10 Essential (primary) hypertension; K21.9 Gastro-esophageal reflux disease without esophagitis; F41.8 Other specified anxiety disorders; M19.90 Unspecified osteoarthritis, unspecified site; F03.90 Unspecified dementia, unspecified severity, without behavioral disturbance, psychotic disturbance, mood disturbance, and anxiety; Z90.710 Acquired absence of both cervix and uterus; Z98.890 Other specified postprocedural states; Z98.1 Arthrodesis status
CPT/HCPCS: 96361; 96374; 96375; 96376; 99283; J1200; J2930; J7040; 99284

== ENCOUNTER 2016-10-25 09:46 | Emergency (ER) | payer MEDICARE, OTHER ==
--- NOTE | 2016-10-25 09:49 | EDM.PDOC ---
ED HPI GENERAL MEDICAL PROBLEM - General Chief Complaint: ENT Problem Stated Complaint: [facility]/NOSE BLEED Time Seen by Provider: 10/25/16 09:49 Source of Information: Reports: Patient, EMS History Limitations: Reports: No Limitations - History of Present Illness INITIAL COMMENTS - FREE TEXT/NARRATIVE: 86-year-old female presents to the ED because of a vicious nosebleed from the right side for the last 2-1/2 hours. She is unable to been getting it stopped. She reports she's been having intermittent right-sided nosebleeds off and on for the last week or more. Is using a steroid spray as well as bacitracin ointment at bedtime. Blood is running down the back of her throat and she is somewhat nauseated from the blood. No blood has come from the left naris. No recent trauma or nasal surgery. She arrives by ambulance from [place] patient takes no blood thinners. She is on aspirin only. Blood pressure is normal at 130 /74. Onset: Gradual (Been having intermittent nosebleeds for the last several weeks worse for the last 2-1/2 hours.) Onset Date: 10/25/16 Onset Time: 07:00 Duration: Hour(s): Location: Reports: Face (Nosebleed right naris) Quality: Reports: Other (No pain) Severity: Severe Improves with: Reports: Other (Compressing the nose together and slowed the bleeding somewhat.) Worsens with: Reports: None Context: Reports: Other (Spontaneous nontraumatic right-sided nasal hemorrhage.) . 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.) - Related Data Allergies Allergy/AdvReac Type Severity Reaction Status Date / Time azithromycin [From Zithromax] Allergy Hives Verified 10/25/16 09:54 cefaclor [From Ceclor] Allergy Rash Verified 10/25/16 09:54 valacyclovir HCl Allergy Rash Verified 10/25/16 09:54 [From Valtrex] pregabalin [From Lyrica] AdvReac Hypertensio Verified 10/25/16 09:54 n Home Meds: Home Meds Irbesartan [Avapro] 150 mg PO QAM 09/17/13 [History] Omeprazole 20 mg PO Q48H 09/17/13 [History] amLODIPine Besylate [Amlodipine Besylate] 5 mg PO QAM 09/17/13 [History] Acetaminophen [Tylenol Extra Strength] 500 mg PO DAILY PRN 09/18/13 [History] Fish Oil/[place]-3 Fatty Acids [Fish Oil 1,000 MG] 1,000 mg PO DAILY 09/18/13 [ History] Flaxseed Oil [Flaxseed] 1 cap PO DAILY 09/18/13 [History] Multivitamin [Multi-Vitamin Daily] 1 tab PO DAILY 09/18/13 [History] Calcium Carbonate [Calcium] 1 tab PO DAILY 05/26/16 [History] DULoxetine [Cymbalta] 90 mg PO DAILY 05/26/16 [History] Donepezil [Aricept] 10 mg PO BEDTIME 05/26/16 [History] Gabapentin [Neurontin] 300 mg PO BEDTIME 05/26/16 [History] Melatonin 1 mg PO BEDTIME PRN 05/26/16 [History] Aspirin 81 mg PO DAILY #100 tab.chew 05/29/16 [Rx] oxyCODONE 5 mg PO Q6H PRN #56 tablet 05/29/16 [Rx] Amiodarone [Cordarone] 100 mg PO DAILY 07/03/16 [History] Fluticasone Propionate [Flovent] 1 inh INH BID 07/03/16 [History] Lutein/Minerals/Vit A,C & E [Ocuvite] 2 tab PO 1200 07/26/16 [History] Ipratropium [place] 1 spray RAFAEL DAILY PRN 10/25/16 [History] Methylcellulose [Citrucel] 1 tab PO TID 10/25/16 [History] Metoprolol Succinate [Toprol XL] 25 mg PO BID 10/25/16 [History] Mupirocin Oint [Bactroban Oint] 1 applic RAFAEL DAILY PRN 10/25/16 [History] Spironolact/Hydrochlorothiazid [Spironolactone-HCTZ 25-25] 1 tab PO DAILY [History] Past Medical History HEENT History: Reports: Impaired Vision Other HEENT History: Wears glasses Cardiovascular History: Reports: Afib (paroxysmal), Hypertension Gastrointestinal History: Reports: GERD Other Gastrointestinal History: Incontinent of bowels Genitourinary History: Reports: Urinary Incontinence Other Genitourinary History: Wears incontinent pads E [employer] History: Reports: Musculoskeletal History: Reports: Back Pain, Chronic, Osteoarthritis Neurological History: Reports: Other (See Below) Other Neuro History: Migraines quit after menopause, short term memory loss diagnosisi Psychiatric History: Reports: Anxiety, Depression Other Psychiatric History: Short term memory loss. - Infectious Disease History Infectious Disease History: Reports: Measles, Shingles - Past Surgical History HEENT Surgical History: Reports: Cataract Surgery, Tonsillectomy Neurological Surgical History: Reports: Lumbar Spine Musculoskeletal Surgical History: Reports: Other (See Below) Social & Family History - Family History Family Medical History: Noncontributory - Tobacco Use Smoking Status *Q: Never Smoker Second Hand Smoke Exposure: No - Caffeine Use Caffeine Use: Reports: None - Alcohol Use Days Per Week of Alcohol Use: 0 - Recreational Drug Use Recreational Drug Use: No Drug Use in Last 12 Months: No - Living Situation & Occupation Living situation: Reports: , with Spouse Occupation: Retired ED ROS ENT - Review of Systems Review Of Systems: See Below Constitutional: Denies: Fever, Chills, Malaise, Weakness, Fatigue, Decreased Appetite, Weight Loss HEENT: Reports: Nosebleed (See history of present illness) Respiratory: Reports: No Symptoms Cardiovascular: Reports: Blood Pressure Problem, Dyspnea on Exertion. Denies: Chest Pain, Claudication, Edema, Lightheadedness, Orthopnea Endocrine: Reports: Fatigue GI/Abdominal: Reports: Nausea : Reports: Frequency, Incontinence Musculoskeletal: Reports: Back Pain (Stress and urge component), Joint Pain ( These hips shoulders at times.) Skin: Reports: No Symptoms. Denies: Bruising Neurological: Reports: No Symptoms Psychiatric: Reports: No Symptoms ED EXAM, ENT - Physical Exam Exam: See Below Exam Limited By: No Limitations General Appearance: Alert, WD/WN, Moderate Distress Eye Exam: Bilateral Eye: Normal Inspection Nose: Other Mouth/Throat: Other (Blood in the posterior oropharynx on the right side) Head: Atraumatic, Normocephalic ( with some clotting.) Neck: Normal Inspection, Supple, Non-Tender, Full Range of Motion Respiratory/Chest: No Respiratory Distress, Lungs Clear, Normal Breath Sounds, No Accessory Muscle Use Cardiovascular: Normal Peripheral Pulses, Regular Rate, Rhythm, No Edema, No Gallop, No Murmur Extremities: Normal Inspection, Normal Range of Motion, Non-Tender, Normal Capillary Refill Neurological: Alert, Oriented, CN II-XII Intact, Normal Cognition Psychiatric: Normal Affect, Normal Mood Skin: Warm, Dry, Intact, Normal Color, No Rash ED ENT PROCEDURES - Epistaxis Procedure Indication: Epistaxis Recent anticoagulants/antiplatlets: No Uncontrolled HTN: No Recent septal/nasal surgery: No Site of bleeding: Right Nare Clearing of clots: Patient Blew Nose Topical Meds: Topical Cocaine, Other (Afrin nasal spray) Ice pack to area: No Chemical cautery: Silver Nitrate Topical Course - Vital Signs Last Recorded V/S: Last Vital Signs Temp 36.4 C 10/25/16 09:51 Pulse 85 10/25/16 09:51 Resp 16 10/25/16 09:51 BP 130/74 10/25/16 09:51 Pulse Ox 95 10/25/16 09:51 - Orders/Labs/Meds Orders: Active Orders 24 hr Category Date Time Status INR,PT,PROTHROMBIN TIME [COAG] Stat Lab 10/25/16 10:19 Received PTT,PARTIAL THROMBOPLSTIN TIME [COAG] Stat Lab 10/25/16 10:19 Received Labs: Laboratory Tests 10/25/16 10/25/16 Range/Units 10:19 10:19 WBC 6.05 (3.98-10.04) K/mm3 RBC 3.66 L (3.98-5.22) M/mm3 Hgb 11.9 (11.2-15.7) gm/L Hct 34.9 (34.1-44.9) % MCV 95.4 H (79.4-94.8) fl MCH 32.5 H (25.6-32.2) pg MCHC 34.1 (32.2-35.5) g/dl RDW Std Deviation 46.3 (36.4-46.3) fL Plt Count 274 (182-369) K/mm3 MPV 8.2 L (9.4-12.3) fl Neutrophils % (Manual) 75 H (40-60) % Band Neutrophils % 2 (0-10) % Lymphocytes % (Manual) 22 (20-40) % Atypical Lymphs % 0 % Monocytes % (Manual) 1 L (2-10) % Eosinophils % (Manual) 0 L (0.7-5.8) % Basophils % (Manual) 0 L (0.1-1.2) Platelet Estimate Adequate RBC Morph Comment Normal Sodium 138 (136-145) mEq/L Potassium 4.3 (3.5-5.1) mEq/L Chloride 102 (98-107) mEq/L Carbon Dioxide 29 (21-32) mEq/L Anion Gap 11.3 (5-15) BUN 32 H (7-18) mg/dL Creatinine 1.1 H (0.55-1.02) mg/dL Est Cr Clr Drug Dosing 35.64 mL/min Estimated GFR (MDRD) 47 (>60) mL/min BUN/Creatinine Ratio 29.1 H (14-18) Glucose 116 H (83-115) mg/dL Calcium 8.8 (8.5-10.1) mg/dL Total Bilirubin 1.0 (0.2-1.0) mg/dL AST 20 (15-37) U/L ALT 7 L (14-59) U/L Alkaline Phosphatase 58 (46-116) U/L Total Protein 6.8 (6.4-8.2) g/dl Albumin 3.4 (3.4-5.0) g/dl Globulin 3.4 gm/dL Albumin/Globulin Ratio 1.0 (1-2) Meds: Medications Discontinued Medications Generic Name Dose Route Start Last Admin Trade Name Freq PRN Reason Stop Dose Admin Cocaine HCl 4 ml 10/25/16 09:52 10/25/16 10:28 Cocaine Hcl TOP 10/25/16 09:53 4 ml ONETIME ONE Administration Oxymetazoline HCl 15 ml 10/25/16 09:52 10/25/16 10:28 Afrin Original 0.05% Nasal [place] RAFAEL 10/25/16 09:53 15 ml ONETIME ONE Administration - Radiology Interpretation Free Text/Narrative:: 56-year-old female arrives per ambulance from [facility] where she developed a severe right epistaxis for the last 2-1/2 hours. Unable to bring it under control. On arrival she has a continued bleeding from the right side of the naris. The left is patent and clear. She has blood running down the posterior oropharynx. I cannot visualize any obvious source of bleeding initially. Therefore he knows will be packed with a combination of cocaine and Afrin for 25 minutes or so to bring the bleeding under control to see if we can identify a source that might be amenable to cauterization. - Re-Assessments/Exams Free Text/Narrative Re-Assessment/Exam: 10/25/16 10:11 right naris is packed with a combination of Afrin and cocaine with half inch tube gauze. This was to try and bring the bleeding under control. Nasal clamp placed and I will review her in 25 minutes. 10/25/16 10:35 packing was removed from the right naris hand proved to be an anterior nasal septal bleeding. She'd of blood vessels were appreciated in the very anterior aspect of the nasal septum. This area underwent cauterization with silver nitrate. I will review her in 10 minutes time. 10/25/16 10:50 on review there is still wants pinpoint area of bleeding near the floor of the nose and the anterior septal area and I touched it with silver nitrate. There is some blood in the posterior nasopharynx but I said is no active bleeding that I can visualize. There is no blood in the oropharynx. Continue immunosuppression ointment since she has an already applied to each knee side of the nasal septum once daily at bedtime for one week then twice weekly like Tuesday's and Tuesday nights. She is advised to stop her nasal spray at this time which is a steroid spray as it is drying out the nose too much for the next 10 days. She will of course return if any further active nose bleeding occurs. She was advised she could substitute Polysporin ointment for the new Cipro and ointment once in the super anointment as run out. Departure - Departure Time of Disposition: 10:51 Disposition: Home, Self-Care 01 Condition: Fair Clinical Impression: Epistaxis not due to trauma - Discharge Information Referrals: Alex Maguire MD [Primary Care Provider] - Additional Instructions: Evaluation in the emergency room today in regards to recurrent right-sided nosebleeds over the last couple of weeks but particularly bad this morning with 2-1/2 hours of persistent bleeding. The nose bleeding was brought under control by direct pressure and then packing with cocaine and Afrin nasal spray. Was in able to visualize the area of bleeding from the anterior nasal septum and this area was cauterized with silver nitrate treatment at home is Mr. Delgado ointment since you haven't already applied to the end of a Q-tip and coating the nasal septum every night at bedtime for the next week on both sides of the nose. After this may use the ointment Tuesday's and Tuesday nights until the end of summer at least until temperatures get down into the 70s. I.e. we don't need air conditioner running all the time may resume your allergy nasal spray in 10 days' time. Note her nose will run today and you how the snuffles for the next hour or 2 of cigarette amanda-like material from the right nose as this is the color of silver nitrate winds coming out. There might be some pinkish tinge to it as there is still some residual blood within the floor of the nose that we did not clean out. Of course return to the hospital if you develop aggressive right-sided nose bleeding again. After the IV Cipro and ointment is finished you may take up some Polysporin ointment which is [id number] does not need a prescription. It does the same thing and is cheaper. Continue all other medications at this time - My Orders Last 24 Hours: My Active Orders 10/25/16 10:19 INR,PT,PROTHROMBIN TIME [COAG] Stat PTT,PARTIAL THROMBOPLSTIN TIME [COAG] Stat - Assessment/Plan Last 24 Hours: My Active Orders 10/25/16 10:19 INR,PT,PROTHROMBIN TIME [COAG] Stat PTT,PARTIAL THROMBOPLSTIN TIME [COAG] Stat
[2016-10-25] MEDS ORDERED: Oxymetazoline 0.05% Nasal Spray 15 ML Bottle NAS ONE (09:52)
[2016-10-25 09:54] VITALS: BP 130/74
== END 2016-10-25 11:20 | disposition home or self-care (01) ==
LOC: JD.ED 09:46
DX: R04.0 Epistaxis (principal); I48.91 Unspecified atrial fibrillation; I10 Essential (primary) hypertension; F41.9 Anxiety disorder, unspecified; F32.9 Major depressive disorder, single episode, unspecified; Z88.1 Allergy status to other antibiotic agents; Z79.82 Long term (current) use of aspirin; Z79.899 Other long term (current) drug therapy; Z98.49 Cataract extraction status, unspecified eye
CPT/HCPCS: 30901; 36415; 80053; 85025; 85610; 85730; 99284; A9270; 99283-25

== ENCOUNTER 2017-05-09 18:16 | Emergency (ER) | payer MEDICARE, OTHER ==
[2017-05-09 18:29] VITALS: BP 133/64
[2017-05-09] MEDS ORDERED: Sodium Chloride 0.9% 10 ML Syringe FLUSH PRN (18:31)
--- NOTE | 2017-05-09 18:31 | EDM.PDOC ---
ED HPI GENERAL MEDICAL PROBLEM - General Chief Complaint: Syncope Stated Complaint: [facility] Time Seen by Provider: 05/09/17 18:30 Source of Information: Reports: Patient, RN Notes Reviewed - History of Present Illness INITIAL COMMENTS - FREE TEXT/NARRATIVE: 87-year-old female has been brought in by [facility] after suffering a syncopal event. [place] fine this past afternoon playing cards with no unusual symptoms. She did eat her evening dinner but then started to feel sick very shortly after that. Became nauseated, lightheaded, dizzy did pass out briefly. She was eventually helped to the bathroom where she had an episode of very watery diarrhea. [facility] then did transported here without further incident. She feels mildly nauseated at this time. She has not vomited. No chest pain or difficulty breathing. No major abdominal discomfort at this time. Her is just getting over an illness of vomiting and diarrhea that started for him about 3 or 4 days ago. She has no known history of coronary artery disease or diabetes. - Related Data Allergies Allergy/AdvReac Type Severity Reaction Status Date / Time azithromycin [From Zithromax] Allergy Hives Verified 05/09/17 18:29 cefaclor [From Ceclor] Allergy Rash Verified 05/09/17 18:29 valacyclovir HCl Allergy Rash Verified 05/09/17 18:29 [From Valtrex] pregabalin [From Lyrica] AdvReac Hypertensio Verified 05/09/17 18:29 n Home Meds: Home Meds Irbesartan [Avapro] 150 mg PO QAM 09/17/13 [History] Omeprazole 20 mg PO Q48H 09/17/13 [History] amLODIPine Besylate [Amlodipine Besylate] 5 mg PO QAM 09/17/13 [History] Acetaminophen [Tylenol Extra Strength] 500 mg PO DAILY PRN 09/18/13 [History] Fish Oil/[place]-3 Fatty Acids [Fish Oil 1,000 MG] 1,000 mg PO DAILY 09/18/13 [ History] Flaxseed Oil [Flaxseed] 1 cap PO DAILY 09/18/13 [History] Multivitamin [Multi-Vitamin Daily] 1 tab PO DAILY 09/18/13 [History] Calcium Carbonate [Calcium] 1 tab PO DAILY 05/26/16 [History] DULoxetine [Cymbalta] 90 mg PO DAILY 05/26/16 [History] Donepezil [Aricept] 10 mg PO BEDTIME 05/26/16 [History] Gabapentin [Neurontin] 300 mg PO BEDTIME 05/26/16 [History] Melatonin 1 mg PO BEDTIME PRN 05/26/16 [History] Aspirin 81 mg PO DAILY #100 tab.chew 05/29/16 [Rx] oxyCODONE 5 mg PO Q6H PRN #56 tablet 05/29/16 [Rx] Amiodarone [Cordarone] 100 mg PO DAILY 07/03/16 [History] Fluticasone Propionate [Flovent] 1 inh INH BID 07/03/16 [History] Lutein/Minerals/Vit A,C & E [Ocuvite] 2 tab PO 1200 07/26/16 [History] Ipratropium [place] 1 spray RAFAEL DAILY PRN 10/25/16 [History] Methylcellulose [Citrucel] 1 tab PO TID 10/25/16 [History] Metoprolol Succinate [Toprol XL] 25 mg PO BID 10/25/16 [History] Mupirocin Oint [Bactroban Oint] 1 applic RAFAEL DAILY PRN 10/25/16 [History] Spironolact/Hydrochlorothiazid [Spironolactone-HCTZ 25-25] 1 tab PO DAILY [History] Ondansetron [Zofran ODT] 4 mg PO Q8HR PRN #7 tab.dis 05/09/17 [Rx] Past Medical History HEENT History: Reports: Impaired Vision Other HEENT History: Wears glasses Cardiovascular History: Reports: Afib (paroxysmal), Hypertension Gastrointestinal History: Reports: GERD Other Gastrointestinal History: Incontinent of bowels Genitourinary History: Reports: Urinary Incontinence Other 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 - Infectious Disease History Infectious Disease History: Reports: Measles, Shingles - Past Surgical History HEENT Surgical History: Reports: Cataract Surgery, Tonsillectomy Neurological Surgical History: Reports: Lumbar Spine Musculoskeletal Surgical History: Reports: Other (See Below) Social & Family History - Family History Family Medical History: Noncontributory - Tobacco Use Smoking Status *Q: Never Smoker Second Hand Smoke Exposure: No - Caffeine Use Caffeine Use: Reports: None - Alcohol Use Days Per Week of Alcohol Use: 0 - Recreational Drug Use Recreational Drug Use: No Drug Use in Last 12 Months: No - Living Situation & Occupation Living situation: Reports: , with Spouse Occupation: Retired ED ROS GENERAL - Review of Systems Review Of Systems: See Below Constitutional: Reports: Chills. Denies: Fever HEENT: Denies: Rhinitis, Throat Pain Respiratory: Denies: Shortness of Breath, Cough Cardiovascular: Denies: Chest Pain GI/Abdominal: Reports: Abdominal Pain, Diarrhea, Nausea (Mild discomfort, gone) . Denies: Vomiting Musculoskeletal: Reports: No Symptoms Skin: Reports: No Symptoms Neurological: Reports: Dizziness, Weakness (Generalized). Denies: Trouble Speaking - Physical Exam Exam: See Below General Appearance: Alert, No Apparent Distress Eye Exam: Bilateral Eye: PERRL Throat/Mouth: Other. No: Inflammation (Mildly dry) Head Exam: Atraumatic. No: Facial Swelling Neck: Supple, Full Range of Motion Respiratory/Chest: No Respiratory Distress, Lungs Clear, Normal Breath Sounds Cardiovascular: Regular Rate, Rhythm GI/Abdominal: Soft, Non-Tender. No: Guarding Neuro Exam (Abbreviated): Alert, No Motor/Sensory Deficits Extremities: Normal Inspection. No: Pedal Edema, Leg Pain Skin Exam: Warm, Dry, Normal Color, No Rash EKG INTERPRETATION EKG Date: 05/09/17 Rhythm: NSR [place]: Normal P-Wave: Present QRS: Normal ST-T: Other (Very minimal nonspecific ST changes multiple leads) Course - Vital Signs Last Recorded V/S: Last Vital Signs Temp 97.4 F 05/09/17 18:26 Pulse 63 05/09/17 18:26 Resp 16 05/09/17 18:26 BP 133/64 05/09/17 18:26 Pulse Ox 100 05/09/17 18:26 - Orders/Labs/Meds Orders: Active Orders 24 hr Category Date Time Status EKG 12 Lead [EKG Documentation Completion] [RC] STAT Care 05/09/17 18:31 Active Peripheral IV Care [RC] . DIRECTED Care 01/22/18 18:32 Active Potassium Chloride [KCl 10 MEQ in Water 100 ML] 10 meq Med 05/09/17 19:53 Active Premix Bag 1 bag IV ASDIRECTED Sodium Chloride 0.9% [Normal Saline] 1,000 ml Med 05/09/17 20:00 Active IV ASDIRECTED Sodium Chloride 0.9% [Normal Saline] 1,000 ml Med 05/09/17 18:45 Active IV ONETIME Sodium Chloride 0.9% [Saline Flush] Med 05/09/17 18:31 Active 10 ml FLUSH ASDIRECTED PRN Peripheral IV Insertion Adult [OM.PC] Stat Oth 05/09/17 18:32 Ordered Medication Orders Sodium Chloride (Normal Saline) 1,000 mls @ 999 mls/hr IV ONETIME CHAY Last Admin: 05/09/17 18:49 Dose: 999 mls/hr Potassium Chloride 10 meq/ (Premix) 100 mls @ 50 mls/hr IV ASDIRECTED ONE Stop: 05/09/17 21:52 Sodium Chloride (Normal Saline) 1,000 mls @ 150 mls/hr IV ASDIRECTED CHAY Sodium Chloride (Saline Flush) 10 ml FLUSH ASDIRECTED PRN PRN Reason: Keep Vein Open Last Admin: 05/09/17 18:51 Dose: 10 ml Labs: Laboratory Tests 05/09/17 05/09/17 Range/Units 19:00 19:00 WBC 10.12 H (3.98-10.04) K/mm3 RBC 4.15 (3.98-5.22) M/mm3 Hgb 13.4 (11.2-15.7) gm/L Hct 39.3 (34.1-44.9) % MCV 94.7 (79.4-94.8) fl MCH 32.3 H (25.6-32.2) pg MCHC 34.1 (32.2-35.5) g/dl RDW Std Deviation 45.4 (36.4-46.3) fL Plt Count 240 (182-369) K/mm3 MPV 8.4 L (9.4-12.3) fl Neut % (Auto) 92.5 H (34.0-71.1) % Lymph % (Auto) 2.8 L (19.3-51.7) % [place] % (Auto) 3.8 L (4.7-12.5) % Eos % (Auto) 0.6 L (0.7-5.8) Baso % (Auto) 0.1 (0.1-1.2) % Neut # (Auto) 9.37 H (1.56-6.13) K/mm3 Lymph # (Auto) 0.28 L (1.18-3.74) K/mm3 [place] # (Auto) 0.38 H (0.24-0.36) K/mm3 Eos # (Auto) 0.06 (0.04-0.36) K/mm3 Baso # (Auto) 0.01 (0.01-0.08) K/mm3 Manual Slide Review Abnormal smear Sodium 143 (136-145) mEq/L Potassium 3.0 L (3.5-5.1) mEq/L Chloride 102 (98-107) mEq/L Carbon Dioxide 35 H (21-32) mEq/L Anion Gap 9.0 (5-15) BUN 19 H (7-18) mg/dL Creatinine 0.8 (0.55-1.02) mg/dL Est Cr Clr Drug Dosing 48.13 mL/min Estimated GFR (MDRD) > 60 (>60) mL/min BUN/Creatinine Ratio 23.8 H (14-18) Glucose 123 H (83-115) mg/dL Calcium 8.8 (8.5-10.1) mg/dL Total Bilirubin 0.6 (0.2-1.0) mg/dL AST 19 (15-37) U/L ALT 20 (14-59) U/L Alkaline Phosphatase 66 (46-116) U/L Total Protein 7.1 (6.4-8.2) g/dl Albumin 3.6 (3.4-5.0) g/dl Globulin 3.5 gm/dL Albumin/Globulin Ratio 1.0 (1-2) Meds: Medications Generic Name Dose Route Start Last Admin Trade Name Freq PRN Reason Stop Dose Admin Sodium Chloride 1,000 mls @ 999 mls/hr 05/09/17 18:45 05/09/17 18:49 Normal Saline IV 999 mls/hr ONETIME CHAY Administration Potassium Chloride 10 meq/ 100 mls @ 50 mls/hr 05/09/17 19:53 Premix IV 05/09/17 21:52 ASDIRECTED ONE Sodium Chloride 1,000 mls @ 150 mls/hr 05/09/17 20:00 Normal Saline IV ASDIRECTED CHAY Sodium Chloride 10 ml 05/09/17 18:31 05/09/17 18:51 Saline Flush FLUSH 10 ml ASDIRECTED PRN Administration Keep Vein Open Discontinued Medications Generic Name Dose Route Start Last Admin Trade Name Idania PRN Reason Stop Dose Admin Famotidine 20 mg 05/09/17 18:40 05/09/17 18:51 Pepcid IVPUSH 05/09/17 18:41 20 mg ONETIME ONE Administration Ondansetron HCl 4 mg 05/09/17 18:40 05/09/17 18:50 Zofran IVPUSH 05/09/17 18:41 4 mg ONETIME ONE Administration Departure - Departure Time of Disposition: 21:20 Disposition: Home, Self-Care 01 Condition: Fair Clinical Impression: Syncope Qualifiers: Syncope type: unspecified Qualified Code(s): R55 - Syncope and collapse Diarrhea Qualifiers: Diarrhea type: unspecified type Qualified Code(s): R19.7 - Diarrhea, unspecified - Discharge Information Prescriptions: Ondansetron [Zofran ODT] 4 mg PO Q8HR PRN #7 tab.dis PRN Reason: Nausea/Vomiting Referrals: Alex Maguire MD [Primary Care Provider] - Forms: ED Department Discharge Additional Instructions: Clear liquids until tomorrow afternoon or until symptoms of nausea and diarrhea resolving, probiotic twice daily for 1 week, Zofran 1 tablet ODT every 8 hours if needed for further nausea or vomiting. Potassium was low this evening at 3.0. In then inserted good source of potassium when you are able to start eating better again. Eat one or 2 bananas per day. Other fruit and vegetables were also good for potassium. Potatoes are also a very high source of potassium. Follow-up clinic if not much better within 2-3 days as expected, return to ED as needed if symptoms worsening in any way. Follow-up clinic in about 7 days to have potassium rechecked. - My Orders Last 24 Hours: My Active Orders 05/09/17 18:31 EKG 12 Lead [EKG Documentation Completion] [RC] STAT Sodium Chloride 0.9% [Saline Flush] 10 ml FLUSH ASDIRECTED PRN 05/09/17 18:32 Peripheral IV Care [RC] . DIRECTED Peripheral IV Insertion Adult [OM.PC] Stat 05/09/17 18:45 Sodium Chloride 0.9% [Normal Saline] 1,000 ml IV ONETIME 05/09/17 19:53 Potassium Chloride [KCl 10 MEQ in Water 100 ML] 10 meq Premix Bag 1 bag IV ASDIRECTED 05/09/17 20:00 Sodium Chloride 0.9% [Normal Saline] 1,000 ml IV ASDIRECTED - Assessment/Plan Last 24 Hours: My Active Orders 05/09/17 18:31 EKG 12 Lead [EKG Documentation Completion] [RC] STAT Sodium Chloride 0.9% [Saline Flush] 10 ml FLUSH ASDIRECTED PRN 05/09/17 18:32 Peripheral IV Care [RC] . DIRECTED Peripheral IV Insertion Adult [OM.PC] Stat 05/09/17 18:45 Sodium Chloride 0.9% [Normal Saline] 1,000 ml IV ONETIME 05/09/17 19:53 Potassium Chloride [KCl 10 MEQ in Water 100 ML] 10 meq Premix Bag 1 bag IV ASDIRECTED 05/09/17 20:00 Sodium Chloride 0.9% [Normal Saline] 1,000 ml IV ASDIRECTED
[2017-05-09] MEDS ORDERED: Famotidine 20 MG/2 ML SDV IVPUSH ONE (18:40)
[2017-05-09] MEDS ORDERED: Ondansetron 4 MG/2 ML SDV IVPUSH ONE (18:40)
[2017-05-09] MEDS ORDERED: Sodium Chloride 0.9% 1,000 ML IV SCH ×2 (18:45→20:00)
[2017-05-09] MEDS ORDERED: Potassium Chloride 10 MEQ in Premix Bag 1 BAG IV ONE (19:53)
== END 2017-05-09 21:05 | disposition home or self-care (01) ==
LOC: JD.ED 18:16
DX: R55 Syncope and collapse (principal); R19.7 Diarrhea, unspecified; I10 Essential (primary) hypertension; I48.0 Paroxysmal atrial fibrillation; Z79.899 Other long term (current) drug therapy; Z88.1 Allergy status to other antibiotic agents; Z88.8 Allergy status to other drugs, medicaments and biological substances
CPT/HCPCS: 36415; 80053; 85025; 93005; 96361; 96365; 96375; 99285; J2405; J3480; J7040; J7050; 93010; 99284-25

== ENCOUNTER 2021-10-10 03:05 | Emergency (ER) | payer MEDICARE, OTHER ==
[2021-10-10 03:28] VITALS: BP 159/79; PULSE 64
[2021-10-10] MEDS ORDERED: Orphenadrine 100 MG Tab.ER PO STA (04:11)
[2021-10-10] MEDS ORDERED: HYDROmorphone 0.5 MG/0.5 ML Syringe IM STA (04:13)
[2021-10-10 04:54] LABS: ESTIMATED GFR 83 mL/min (>60)
[2021-10-10] MEDS ORDERED: Sodium Chloride 0.9% 1,000 ML IV SCH (06:30)
== END 2021-10-10 07:55 | disposition home or self-care (01) ==
LOC: JD.ED 03:05
DX: M62.838 Other muscle spasm (principal); I48.91 Unspecified atrial fibrillation; K21.9 Gastro-esophageal reflux disease without esophagitis; Z88.1 Allergy status to other antibiotic agents; Z88.8 Allergy status to other drugs, medicaments and biological substances; Z79.899 Other long term (current) drug therapy; Z79.82 Long term (current) use of aspirin
CPT/HCPCS: 36415; 71046; 71260; 80053; 83735; 84484; 85025; 93005; 96360; 96372; 99284; A9270; J1170; J7030